=== PATIENT | male | born 1990 | race Caucasian/White ===

== ENCOUNTER 2016-11-24 12:50 | Emergency (ER) | payer BC, OTHER ==
[~2016-11-24] VITALS: Wt 194.5 kg
[~2016-11-24 12:50] MED LIST: AMO500 PO; AMOX1TAB67 PO; CIPR7.5D4 RIGHT EAR; HYDR-762 PO; IBUP-1542 PO; NPH10OT RIGHT EAR
[2016-11-24] MEDS ORDERED: HYDROCODONE/APAP (5/325) TAB PO ONE (15:00)
[2016-11-24] MEDS ORDERED: IBUPROFEN 800 MG TAB PO ONE (15:00)
--- NOTE | 2016-11-24 15:26 | ERD ---
ER Documentation Chief Complaint Date/Time DATE: 11/24/16 TIME: 15:19 Chief Complaint LOW BACK PAIN, NO INJURY PT MORBIDLY OBESE HPI This is a 25-year-old male, with past medical history for morbid obesity, presenting to emergency department with acute lower back pain 4 days. Patient states he was lifting heavy boxes when suddenly he felt pain in his mid lower and thoracic spine. Patient states since then pain has become worse. Patient went to a chiropractor yesterday and was told to have "x-rays done." Patient denies fever or chills. No nausea or vomiting. No abdominal pain. No chest pain or upper back pain. Patient states he has had intermittent shortness of breath since injury. Patient is talking in complete sentences and appears to have unlabored breathing. No numbness or tingling to extremities. No saddle anesthesia. ROS All systems reviewed and are negative except as per history of present illness. Medications Home Meds Active Scripts Tramadol HCl (Tramadol HCl) 50 Mg Tablet, 50 MG PO Q4 Y for PAIN, #10 TAB Prov:DORIS NIELSEN NP 11/24/16 Ibuprofen* (Motrin*) 600 Mg Tab, 600 MG PO Q6, #30 TAB Prov:DORIS NIELSEN NP 11/24/16 Ibuprofen* (Motrin*) 600 Mg Tab, 600 MG PO Q6, #30 TAB Prov:HARRY العلي 09/28/15 Hydrocodone Bit-Acetaminophen* ([place]*) 10-325 Mg Tablet, 1 TAB PO Q4H Y for PAIN, #7 TAB Prov:HARRY العلي 09/28/15 Ciprofloxacin Hcl/Dexameth (Ciprodex Otic Suspension) 7.5 Ml Drops.susp, 4 DROP RIGHT EAR BID for 7 Days, EA Prov:HARRY العلي 09/28/15 Amoxicillin-Clavulanate K* (Augmentin*) 500 Mg Tab, 500 MG PO BID for 10 Days, TAB Prov:HARRY العلي 09/28/15 Amoxicillin* (Amoxicillin*) 500 Mg Cap, 500 MG PO TID for 7 Days, CAP Prov:MOY STALEY-Prashanth 09/26/15 Neomycin/Polymyxin/Hydrocort* (Cortisporin* Otic) 10 Ml Susp, 4 DROP RIGHT EAR QID for 7 Days, EA Prov:STALEY,OMY Helton PA-C 09/26/15 Allergies Allergies: Coded Allergies: No Known Drug Allergies (Verified Allergy, Mild, 11/24/16) PMhx/Soc History of Surgery: Yes (TONSILECTOMY, NOSE) Hx Neurological Disorder: No Hx Respiratory Disorders: No Hx Cardiac Disorders: No Hx Psychiatric Problems: No Hx Miscellaneous Medical Probl: No Hx Alcohol Use: No Hx Substance Use: No Hx Tobacco Use: No Smoking Status: Never smoker Physical Exam Vitals Vital Signs Date Time Temp Pulse Resp B/P Pulse Ox O2 Delivery O2 Flow Rate FiO2 11/24/16 16:25 98.6 92 18 167/93 96 Room Air 11/24/16 12:55 97.9 87 18 179/81 95 Physical Exam Const: No acute distress, alert Head: Atraumatic Eyes: Normal Conjunctiva ENT: Normal External Ears, Nose and Mouth. Neck: Full range of motion..~ No meningismus. Resp: Clear to auscultation bilaterally Cardio: Regular rate and rhythm, no murmurs Abd: Soft, non tender, non distended. Normal bowel sounds Skin: No petechiae or rashes Back: No midline or flank tenderness Ext: No cyanosis, or edema Neur: Awake and alert Psych: Normal Mood and Affect Results 24 hrs Laboratory Tests Test 11/24/16 15:04 Urine Color YELLOW Urine Clarity CLEAR Urine pH 8.0 Urine Specific [place] 1.020 Urine Ketones NEGATIVEmg/dL Urine Nitrite NEGATIVEmg/dL Urine Bilirubin NEGATIVEmg/dL Urine Urobilinogen NEGATIVEmg/dL Urine Leukocyte Esterase NEGATIVELeu/ul Urine Hemoglobin NEGATIVEmg/dL Urine Glucose NEGATIVEmg/dL Urine Total Protein NEGATIVEmg/dl Current Medications Medications (Trade) Dose Ordered Sig/Guillaume Route PRN Reason Start Time Stop Time Status Last Admin Dose Admin Ibuprofen (Motrin) 800 mg ONCE ONCE PO 11/24/16 15:00 11/24/16 15:01 DC 11/24/16 14:58 Acetaminophen/ Hydrocodone Bitart ([place] (5/325)) 1 tab ONCE ONCE PO 11/24/16 15:00 11/24/16 15:01 DC 11/24/16 14:58 Procedures/[place] [id number] Radiology Main Line: [phone] DIAGNOSTIC IMAGING REPORT Patient: SHELLEY MELÉNDEZ : 1990 Age: 25 Sex: M MR #: [id number] DOS: 11/24/16 1450 Ordering MD: DORIS NIELSEN NP Location: [facility] Room/Bed: PROCEDURE: XR Lumbar Spine. CLINICAL INDICATION: Back pain. TECHNIQUE: Three views. AP, lateral and cone-down lateral view of the lumbar spine were obtained. COMPARISON: No prior studies are available for comparison. FINDINGS: The images are suboptimal due to the large size of the patient. There is no obvious fracture. There is lumbar scoliosis convex right measuring 15 degrees between T11 and L5. There is no lytic or blastic lesion. The disk height is normal. The paravertebral soft tissues are unremarkable. IMPRESSION: 1. Dextroscoliosis measuring 15 degrees. 2. Suboptimal images due to large size of the patient. 3. Otherwise unremarkable study. [place] [id number] Radiology Main Line: [phone] DIAGNOSTIC IMAGING REPORT Patient: SHELLEY MELÉNDEZ : 1990 Age: 25 Sex: M MR #: [id number] DOS: 11/24/16 1450 Ordering MD: DORIS NIELSEN NP Location: [facility] Room/Bed: PROCEDURE: XR Thoracic Spine. CLINICAL INDICATION: Trauma. Back pain. TECHNIQUE: Three views. Frontal, lateral, and lateral swimmers. COMPARISON: None available FINDINGS: This is a limited study due to large size of the patient. There is normal stature and alignment of the vertebrae. There is no fracture. There is no lytic or blastic lesion. The disk height is normal. IMPRESSION: 1. Limited study with no gross abnormality. [place] [id number] Radiology Main Line: [phone] DIAGNOSTIC IMAGING REPORT Patient: SHELLEY MELÉNDEZ : 1990 Age: 25 Sex: M MR #: [id number] DOS: 11/24/16 1445 Ordering MD: DORIS NIELSEN NP Location: [facility] Room/Bed: PROCEDURE: XR Chest. CLINICAL INDICATION: Back pain. TECHNIQUE: Single frontal view. COMPARISON: None. FINDINGS: The lungs are clear. The heart size is normal. There is no pleural effusion. There is no pneumothorax. IMPRESSION: 1. Normal chest radiograph. RPTAT: QQ EKG: As determined by myself and Dr. Peterson Rate/Rhythm: Sinus rhythm with heart rate 92 bpm QRS, ST, T-waves: No changes consistent w/ acute ischemia Impression: No evidence of ischemia or arrhythmia MDM: 25 year old male presenting to ER for acute lower back pain after lifting heavy boxes 4 days ago. Patient states pain began suddenly while lifting. Pain is midline. No flank or upper back pain. No abdominal pain. No nausea or vomiting. No difficulty urinating, dysuria or hematuria. There is no tenderness to palpation on exam of thoracic or lumbar spine. Patient is afebrile on arrival to ED and denies fevers. Patient has elevated BP on initial assessment of 179/81mm Hg. Patient states he normally has normal BP and believes it is elevated due to pain. Chest xray, UA and EKG ordered for the intermittent shortness of breath. Patient is seen in no acute distress and on his phone during assessment. Patient's breathing is unlabored and patient is talking in complete sentences. Chest xray reviewed by radiologist as . UA shows no infection or blood. EKG reviewed by myself and Dr. Peterson as normal sinus rhythm and HR 92bpm. Chest x -ray reviewed by radiologist as normal chest radiograph. X-ray lumbar spine and thoracic spine reviewed by radiologist as dextroscoliosis measuring 15 otherwise unremarkable and limited study with no gross abnormality.Patient given ibuprofen and [place] along the ED and upon reassessment patient states pain has improved. Patient is ambulating without difficulty. Appears in no acute distress. Vital signs remained stable. Blood pressure has reduced instructed patient to follow-up with primary care provider for blood pressure management. Low suspicion for cauda equina syndrome, acute fracture, acute dislocation, epidural abscess, malignancy and AAA rupture. Differential Diagnosis includes but is not limited to back strain, vertebral fracture, herniated disc, spinal stenosis and nephrolithiasis. Patient is appropriate for outpatient management will be given prescription for ibuprofen 600 mg #30 and tramadol 50 mg #10. Instructed patient to follow-up with primary care provider in the next 2-3 days for reassessment and additional management. Return to ED for any high fever, chest pain, difficulty breathing, shortness breath, wheezing, vomiting, diarrhea, abdominal pain or any new or worsening symptoms. Patient and patient's mother verbalize understanding. All questions answered at discharge. Disclaimer: Inadvertent spelling and grammatical errors are likely due to EHR/ dictation software use and do not reflect on the overall quality of patient care. Also, please note that the electronic time recorded on this note does not necessarily reflect the actual time of the patient encounter. Departure Diagnosis: Primary Impression: Injury of back Encounter type: initial encounter Qualified Code: S39.92XA - Injury of back , initial encounter Condition: Stable DORIS NIELSEN NP Nov 24, 2016 15:26
[2016-11-24 15:34] LABS: ADD UMIC NO; UR ASCORBIC ACID NEGATIVE (NEGATIVE); UR BILIRUBIN (Dip) NEGATIVE (NEGATIVE); UR BLOOD (Dip) NEGATIVE (NEGATIVE); UR CLARITY CLEAR (CLEAR); UR COLOR YELLOW (YELLOW); UR GLUCOSE (Dip) NEGATIVE (NEGATIVE); UR KETONES (Dip) NEGATIVE (NEGATIVE); UR LEUKOCYTE ESTERASE (Dip) NEGATIVE Leu/ul (NEGATIVE); UR NITRITE (Dip) NEGATIVE (NEGATIVE); UR TOTAL PROTEIN (Dip) NEGATIVE (NEGATIVE); UR UROBILINOGEN (Dip) NEGATIVE (NEGATIVE)
--- NOTE | 2016-11-24 15:51 | RADRPT ---
PROCEDURE: XR Chest. CLINICAL INDICATION: Back pain. TECHNIQUE: Single frontal view. COMPARISON: None. FINDINGS: The lungs are clear. The heart size is normal. There is no pleural effusion. There is no pneumothorax. IMPRESSION: 1. Normal chest radiograph. RPTAT: QQ .Vince Pulido MD, Date Time Electronically viewed and signed by .Vince Pulido MD, on 11/24/2016 15:50 .R/
--- NOTE | 2016-11-24 15:52 | RADRPT ---
PROCEDURE: XR Lumbar Spine. CLINICAL INDICATION: Back pain. TECHNIQUE: Three views. AP, lateral and cone-down lateral view of the lumbar spine were obtained. COMPARISON: No prior studies are available for comparison. FINDINGS: The images are suboptimal due to the large size of the patient. There is no obvious fracture. There is lumbar scoliosis convex right measuring 15 degrees between T1 1 and L5. There is no lytic or blastic lesion. The disk height is normal. The paravertebral soft tissues are unremarkable. IMPRESSION: 1. Dextroscoliosis measuring 15 degrees. 2. Suboptimal images due to large size of the patient. 3. Otherwise unremarkable study. RPTAT: QQ .Vince Pulido MD, Date Time Electronically viewed and signed by .Vince Pulido MD, on 11/24/2016 15:52 .R/
--- NOTE | 2016-11-24 15:53 | RADRPT ---
PROCEDURE: XR Thoracic Spine. CLINICAL INDICATION: Trauma. Back pain. TECHNIQUE: Three views. Frontal, lateral, and lateral swimmers. COMPARISON: None available FINDINGS: This is a limited study due to large size of the patient. There is normal stature and alignment of the vertebrae. There is no fracture. There is no lytic or blastic lesion. The disk height is normal. IMPRESSION: 1. Limited study with no gross abnormality. RPTAT: QQ .Vince Pulido MD, MD Date Time Electronically viewed and signed by .Vince Pulido MD, MD on 11/24/2016 15:52 .R/
[2016-11-24] MEDS ORDERED: TRAM50TA2 PO (16:13)
[2016-11-24] MEDS ORDERED: IBUP-1542 PO (16:13)
[2016-11-24 16:25] VITALS: BP 167/93; PULSE 92; RESP 18; TEMP 98.6
== END 2016-11-24 16:34 | disposition home or self-care (01) ==
LOC: FTE 12:50
DX: S39.92XA Unspecified injury of lower back, initial encounter (principal); E66.01 Morbid (severe) obesity due to excess calories; M54.6 Pain in thoracic spine; X50.0XXA Overexertion from strenuous movement or load, initial encounter; Y92.9 Unspecified place or not applicable
CPT/HCPCS: 71010; 72072; 72100; 81003; 93005